=== PATIENT | female | born 1965 | race Caucasian/White ===

== ENCOUNTER 2016-11-10 11:05 | Emergency (ER) | payer BC ==
[~2016-11-10 11:05] MED LIST: CHILDREN'S ASPI81 MG PO; CYCLOBENZAPRINE5 MG PO; GLUCOPHAGE500 MG PO; LIPITOR10 MG PO; MOBIC7.5 MG PO; MULTI-VITAMIN1 EACH PO; NICODERM 7MG PAT1 EA TD; NITROQUICK0.4 MG SL; PRILOSEC40 MG PO; VITAMIN D
== END 2016-11-10 13:55 | disposition home or self-care (01) ==
LOC: ER 11:05
DX: J06.9 Acute upper respiratory infection, unspecified (principal); R05 Cough; F17.210 Nicotine dependence, cigarettes, uncomplicated; Z90.710 Acquired absence of both cervix and uterus; Z88.0 Allergy status to penicillin; Z79.899 Other long term (current) drug therapy
CPT/HCPCS: 96372; 99283-25